=== PATIENT | male | born 1985 | race Two or more races ===

== ENCOUNTER 2021-08-20 13:08 | Inpatient (IN) | payer MEDICAID, OTHER ==
[~2021-08-20] VITALS: Ht 175.3 cm; Wt 114.7 kg
[2021-08-20 13:43] LABS: Eosinophils # (auto) 0 10 ^3/uL (0-0.8); Mean Corpuscular Volume 86.7 fL (80.0-100.0); Monocytes # (auto) 0.4 10 ^3/uL (0-1.3); Neutrophils # (auto) 7.6 10 ^3/uL (1.6-8.6); Nucleated Red Blood Cells % 0.1 %
[2021-08-20 13:44] LABS: Basophils # (auto) 0.2 10 ^3/uL (0-0.2); Basophils % (auto) 1.8 % (0.0-2.0); Eosinophils % (auto) 0.1 % (0.0-7.0); Hemoglobin 18.4 g/dL (13.5-17.5); Lymphocytes # (auto) 1.2 10 ^3/uL (0.4-5.4); Lymphocytes % (auto) 12.6 % (10.0-50.0); Mean Corpuscular Hgb Conc. 33.4 g/dL (32.0-36.0); Monocytes % (auto) 4.7 % (0.0-12.0); Neutrophils % (auto) 80.8 % (37.0-80.0); Red Blood Cells 6.35 10^6/uL (4.5-5.90); White Blood Cell 9.4 10^3/uL (4.4-10.8)
[2021-08-20] MEDS ORDERED: INSULIN LANTUS (GLARGINE) 1 /0.01ml (100units/ml) SC ONE (14:15)
[2021-08-20] MEDS ORDERED: InsuLIN REG 1unit/0.01ml Soln (100units/ml) IV ONE (14:15)
[2021-08-20] MEDS ORDERED: DEXTROSE (50%) 50ML SYRG IV PRN (14:15)
[2021-08-20] MEDS ORDERED: SODIUM CHLORIDE 0.9% 1,000 ML IV ONE (14:15)
[2021-08-20] MEDS ORDERED: ONDANSETRON HCL 4 MG/2 ML VIAL IV ONE (14:15)
[2021-08-20 15:42] LABS: Basophils # (auto) 0.1 10 ^3/uL (0-0.2); Eosinophils # (auto) 0 10 ^3/uL (0-0.8); Hemoglobin 18.2 g/dL (13.5-17.5); Monocytes # (auto) 0.4 10 ^3/uL (0-1.3); Nucleated Red Blood Cells % 0.1 %
[2021-08-20 15:44] LABS: Basophils % (auto) 1.2 % (0.0-2.0); Hematocrit 54.2 % (41.0-53.0); Lymphocytes % (auto) 10.4 % (10.0-50.0); Mean Corpuscular Hemoglobin 29.5 pg (28.0-32.0); Mean Corpuscular Hgb Conc. 33.5 g/dL (32.0-36.0); Mean Corpuscular Volume 88.1 fL (80.0-100.0); Monocytes % (auto) 4.4 % (0.0-12.0); Neutrophils # (auto) 8.2 10 ^3/uL (1.6-8.6); Red Blood Cells 6.15 10^6/uL (4.5-5.90); White Blood Cell 9.7 10^3/uL (4.4-10.8)
[2021-08-20] MEDS: ACCU-CHEK COMFORT CURVE STRIP VI SCH ×6 (16:30→23:05)
[2021-08-20] MEDS: InsuLIN R (HUMAN) 100 UNITS in SODIUM CHL 0.9% 99 ML IV SCH ×2 (17:08→18:57)
[2021-08-20 18:55] LABS: Potassium 4.8 mmol/L (3.5-5.1)
[2021-08-20 18:56] LABS: Albumin 4.9 g/dL (3.4-5.0); Bilirubin, Total 0.8 mg/dL (0.2-1.0); Calcium 9.4 mg/dL (8.5-10.1); Total Protein 9.3 g/dL (6.4-8.2)
[2021-08-20] MEDS ORDERED: HYDROcodone-ACET 5/325MG TAB PO PRN (21:30)
[2021-08-20] MEDS ORDERED: METOPROLOL TARTRATE 25 MG TAB PO ONE (21:30)
[2021-08-20] MEDS ORDERED: ONDANSETRON HCL 4 MG/2 ML VIAL IV PRN (21:30)
[2021-08-20] MEDS ORDERED: ACETAMINOPHEN 325 MG TAB PO PRN (21:30)
[2021-08-20] MEDS ORDERED: DOCUSATE SOD 100 MG CAP PO PRN (21:30)
[2021-08-20] MEDS: METOPROLOL TARTRATE 25 MG TAB PO SCH (23:14)
[2021-08-20] MEDS: SODIUM CHLORIDE 0.9% 1,000 ML IV SCH (23:14)
[2021-08-20] MEDS ORDERED: NITROGLYCERIN 0.4 MG SL TAB SL PRN (23:15)
[2021-08-20] MEDS ORDERED: MORPHINE SULFATE INJ 2 MG/ml SYRG IV PRN (23:15)
[2021-08-21] MEDS: ACCU-CHEK COMFORT CURVE STRIP VI SCH ×13 (00:33→23:15)
[2021-08-21 02:42] LABS: Urine Bacteria NONE SEEN /hpf (None Seen); Urine Blood 1+ /uL (Negative); Urine Specific Gravity 1.029 (1.001-1.035); Urine WBC 1 /hpf (0 - 3)
[2021-08-21] MEDS ORDERED: InsuLIN R (HUMAN) 100 UNITS in SODIUM CHL 0.9% 99 ML IV SCH ×3 (04:15→18:15)
[2021-08-21 05:37] LABS: Albumin 4.3 g/dL (3.4-5.0); BUN/Creatinine Ratio 13.6; Calcium 8.7 mg/dL (8.5-10.1); Potassium 4.4 mmol/L (3.5-5.1)
[2021-08-21 05:40] LABS: Bilirubin, Total 0.8 mg/dL (0.2-1.0); Total Protein 7.7 g/dL (6.4-8.2)
[2021-08-21 07:40] LABS: Albumin 4.3 g/dL (3.4-5.0); Basophils # (auto) 0.2 10 ^3/uL (0-0.2); Basophils % (auto) 2.3 % (0.0-2.0); Calcium 8.7 mg/dL (8.5-10.1); Eosinophils # (auto) 0 10 ^3/uL (0-0.8); Eosinophils % (auto) 0.1 % (0.0-7.0); Hematocrit 47.7 % (41.0-53.0); Hemoglobin 16.4 g/dL (13.5-17.5); Lymphocytes # (auto) 1.6 10 ^3/uL (0.4-5.4); Lymphocytes % (auto) 17.3 % (10.0-50.0); Mean Corpuscular Hemoglobin 29.3 pg (28.0-32.0); Mean Corpuscular Hgb Conc. 34.4 g/dL (32.0-36.0); Monocytes # (auto) 0.8 10 ^3/uL (0-1.3); Monocytes % (auto) 8.5 % (0.0-12.0); Neutrophils # (auto) 6.8 10 ^3/uL (1.6-8.6); Neutrophils % (auto) 71.8 % (37.0-80.0); Nucleated Red Blood Cells % 0.2 %; Potassium 4.1 mmol/L (3.5-5.1); Red Blood Cells 5.62 10^6/uL (4.5-5.90); Red Cell Distribution Width 12.9 % (11.8-14.3); White Blood Cell 9.4 10^3/uL (4.4-10.8)
[2021-08-21 07:44] LABS: BUN/Creatinine Ratio 12.4; Bilirubin, Total 0.7 mg/dL (0.2-1.0)
[2021-08-21] MEDS ORDERED: INSULIN LANTUS (GLARGINE) 1 /0.01ml (100units/ml) SC SCH (10:00)
[2021-08-21] MEDS: METOPROLOL TARTRATE 25 MG TAB PO SCH ×2 (11:17→22:00)
[2021-08-21] MEDS: FAMOTIDINE (10MG/ML) 2ML VL IV SCH (11:17)
[2021-08-21] MEDS ORDERED: DEXTROSE (50%) 50ML SYRG IV PRN ×2 (13:30→18:15)
[2021-08-21] MEDS: SODIUM CHLORIDE 0.9% 1,000 ML IV SCH (14:10)
[2021-08-21] MEDS ORDERED: ACCU-CHEK COMFORT CURVE STRIP VI SCH (16:00)
[2021-08-21] MEDS ORDERED: InsuLIN REG 1unit/0.01ml Soln (100units/ml) SC SCH (16:00)
[2021-08-21] MEDS ORDERED: INSULIN LANTUS (GLARGINE) 1 /0.01ml (100units/ml) SC ONE (18:15)
[2021-08-21] MEDS ORDERED: SODIUM CHLORIDE 0.9% 2,000 ML IV ONE (18:15)
[2021-08-21] MEDS ORDERED: POTASSIUM CHL 20MEQ/100ML 200 ML IV PRN (18:15)
[2021-08-21] MEDS ORDERED: POTASSIUM CHL 20MEQ/100ML 100 ML IV PRN (18:15)
[2021-08-21 20:39] LABS: BUN/Creatinine Ratio 13.4; Calcium 8.7 mg/dL (8.5-10.1); Magnesium 2.6 mg/dL (1.6-2.6); Phosphorus 1.6 mg/dL (2.5-4.90); Potassium 4.3 mmol/L (3.5-5.1)
[2021-08-21 20:45] LABS: Urine Bacteria NONE SEEN /hpf (None Seen); Urine Blood Negative /uL (Negative); Urine Specific Gravity 1.035 (1.001-1.035); Urine WBC <1 /hpf (0 - 3)
[2021-08-21 22:24] LABS: Calcium 8.7 mg/dL (8.5-10.1); Potassium 4.1 mmol/L (3.5-5.1)
[2021-08-21 22:39] VITALS: BP 137/79
[2021-08-21 23:20] VITALS: BP 156/75
[2021-08-22] VITALS (12 sets, daily range): BP systolic 109–142; BP diastolic 55–83
[2021-08-22] MEDS: ACCU-CHEK COMFORT CURVE STRIP VI SCH ×11 (00:37→20:15)
[2021-08-22 00:50] LABS: BUN/Creatinine Ratio 13.1; Calcium 8.3 mg/dL (8.5-10.1); Potassium 3.9 mmol/L (3.5-5.1)
[2021-08-22] MEDS ORDERED: SODIUM BICARBONATE 8.4 % INJ 50ML VIAL IV ONE (02:15)
[2021-08-22 05:14] LABS: Basophils # (auto) 0.1 10 ^3/uL (0-0.2); Basophils % (auto) 1.7 % (0.0-2.0); Eosinophils # (auto) 0.2 10 ^3/uL (0-0.8); Hematocrit 41.4 % (41.0-53.0); Hemoglobin 14.5 g/dL (13.5-17.5); Lymphocytes # (auto) 1.4 10 ^3/uL (0.4-5.4); Lymphocytes % (auto) 26.9 % (10.0-50.0); Mean Corpuscular Hemoglobin 29.1 pg (28.0-32.0); Mean Corpuscular Hgb Conc. 34.9 g/dL (32.0-36.0); Mean Corpuscular Volume 83.4 fL (80.0-100.0); Monocytes # (auto) 0.5 10 ^3/uL (0-1.3); Monocytes % (auto) 8.7 % (0.0-12.0); Neutrophils # (auto) 3.1 10 ^3/uL (1.6-8.6); Neutrophils % (auto) 59.7 % (37.0-80.0); Nucleated Red Blood Cells % 0.2 %; Red Blood Cells 4.97 10^6/uL (4.5-5.90); Red Cell Distribution Width 12.9 % (11.8-14.3); White Blood Cell 5.3 10^3/uL (4.4-10.8)
[2021-08-22 05:36] LABS: Albumin 3.5 g/dL (3.4-5.0); Calcium 8.2 mg/dL (8.5-10.1); Potassium 3.3 mmol/L (3.5-5.1)
[2021-08-22 05:41] LABS: BUN/Creatinine Ratio 13.3; Bilirubin, Total 1.1 mg/dL (0.2-1.0); Total Protein 6.3 g/dL (6.4-8.2)
[2021-08-22] MEDS ORDERED: INSULIN LANTUS (GLARGINE) 1 /0.01ml (100units/ml) SC SCH (10:00)
[2021-08-22] MEDS: FAMOTIDINE (10MG/ML) 2ML VL IV SCH (10:13)
[2021-08-22] MEDS: POTASSIUM CHL 20 Meq TABLET PO SCH ×2 (10:14→20:13)
[2021-08-22] MEDS: SODIUM CHLORIDE 0.9% 1,000 ML IV SCH (10:23)
[2021-08-22 10:38] LABS: BUN/Creatinine Ratio 12.8; Calcium 8.5 mg/dL (8.5-10.1); Potassium 3.3 mmol/L (3.5-5.1)
[2021-08-22] MEDS ORDERED: SODIUM CHLORIDE 0.9% 1,000 ML IV ONE ×2 (11:45)
[2021-08-22] MEDS: D5W/SOD CHL 0.45% 1,000 ML IV SCH ×2 (13:39→22:15)
[2021-08-22 17:15] LABS: Calcium 8.1 mg/dL (8.5-10.1)
[2021-08-22] MEDS ORDERED: DEXTROSE (50%) 50ML SYRG IV PRN (18:00)
[2021-08-22 18:13] LABS: Potassium 3.7 mmol/L (3.5-5.1)
[2021-08-22] MEDS ORDERED: InsuLIN REG 1unit/0.01ml Soln (100units/ml) SC ONE (18:30)
[2021-08-22] MEDS: InsuLIN REG 1unit/0.01ml Soln (100units/ml) SC SCH (20:15)
[2021-08-22 23:10] LABS: BUN/Creatinine Ratio 11.2; Calcium 8.4 mg/dL (8.5-10.1); Potassium 3.5 mmol/L (3.5-5.1)
[2021-08-23] MEDS: InsuLIN REG 1unit/0.01ml Soln (100units/ml) SC SCH ×6 (00:38→21:54)
[2021-08-23] MEDS: ACCU-CHEK COMFORT CURVE STRIP VI SCH ×6 (00:39→21:53)
[2021-08-23] MEDS: D5W/SOD CHL 0.45% 1,000 ML IV SCH (08:15)
[2021-08-23 09:00] VITALS: BP 94/67
[2021-08-23] MEDS: FAMOTIDINE 20 MG TAB PO SCH (09:25)
[2021-08-23 10:12] LABS: Basophils # (auto) 0.1 10 ^3/uL (0-0.2); Basophils % (auto) 1.4 % (0.0-2.0); Eosinophils # (auto) 0.1 10 ^3/uL (0-0.8); Eosinophils % (auto) 2.5 % (0.0-7.0); Hematocrit 38.9 % (41.0-53.0); Hemoglobin 13.5 g/dL (13.5-17.5); Lymphocytes # (auto) 1.1 10 ^3/uL (0.4-5.4); Lymphocytes % (auto) 26.2 % (10.0-50.0); Mean Corpuscular Hemoglobin 29.2 pg (28.0-32.0); Mean Corpuscular Hgb Conc. 34.7 g/dL (32.0-36.0); Mean Corpuscular Volume 84.2 fL (80.0-100.0); Monocytes # (auto) 0.5 10 ^3/uL (0-1.3); Neutrophils # (auto) 2.4 10 ^3/uL (1.6-8.6); Neutrophils % (auto) 57.9 % (37.0-80.0); Nucleated Red Blood Cells % 0.3 %; Red Blood Cells 4.62 10^6/uL (4.5-5.90); Red Cell Distribution Width 12.6 % (11.8-14.3); White Blood Cell 4.1 10^3/uL (4.4-10.8)
[2021-08-23 10:39] LABS: Potassium 3.3 mmol/L (3.5-5.1)
[2021-08-23 10:46] LABS: Albumin 3.2 g/dL (3.4-5.0); BUN/Creatinine Ratio 9.7; Bilirubin, Total 0.7 mg/dL (0.2-1.0); Calcium 8.4 mg/dL (8.5-10.1); Total Protein 5.8 g/dL (6.4-8.2)
[2021-08-23] MEDS ORDERED: INSULIN LANTUS (GLARGINE) 1 /0.01ml (100units/ml) SC ONE (11:45)
[2021-08-23 13:00] VITALS: BP 123/75
[2021-08-23] MEDS ORDERED: DEXTROSE (50%) 50ML SYRG IV PRN (13:00)
[2021-08-23 17:00] VITALS: BP 113/55
[2021-08-23] MEDS: metFORMIN HYDROCHLORIDE 850 MG TAB PO SCH (17:37)
[2021-08-23 21:44] VITALS: BP 122/75
[2021-08-23] MEDS ORDERED: INSULIN LANTUS (GLARGINE) 1 /0.01ml (100units/ml) SC SCH (22:00)
[2021-08-24 04:57] VITALS: BP 123/71
[2021-08-24 05:57] LABS: Calcium 8.7 mg/dL (8.5-10.1); Magnesium 2.2 mg/dL (1.6-2.6)
[2021-08-24 06:01] LABS: BUN/Creatinine Ratio 9.4
[2021-08-24] MEDS: ACCU-CHEK COMFORT CURVE STRIP VI SCH ×2 (07:02→11:08)
[2021-08-24] MEDS: InsuLIN REG 1unit/0.01ml Soln (100units/ml) SC SCH ×2 (07:03→11:09)
[2021-08-24 08:00] VITALS: BP 112/71
[2021-08-24] MEDS: metFORMIN HYDROCHLORIDE 850 MG TAB PO SCH (08:38)
[2021-08-24] MEDS: FAMOTIDINE 20 MG TAB PO SCH (08:38)
[2021-08-24] MEDS ORDERED: POTASSIUM CHL 20 Meq TABLET PO ONE (09:45)
[2021-08-24 12:00] VITALS: BP 121/72
[2021-08-24] MEDS ORDERED: INSLANTI SC (12:08)
[2021-08-24] MEDS ORDERED: METF-371 PO (12:08)
[2021-08-24 12:11] VITALS: BP 112/71
== END 2021-08-24 14:00 | disposition home or self-care (01) | DRG 420 ==
LOC: ER 13:08 → OVERFLOW 23:02 → TELE-WESTW 08-21 17:16 → DOU IN ICU 08-21 23:22 → ICU CENTRL 08-21 23:54 → DOU IN ICU 08-21 23:56 → ICU CENTRL 08-22 01:30 → TELE-EAST 08-23 01:52
PROVIDERS: ADMIT Nurse Practitioner Family; ATTEND Internal Medicine
DX: E11.10 Type 2 diabetes mellitus with ketoacidosis without coma (principal); N17.0 Acute kidney failure with tubular necrosis; E87.1 Hypo-osmolality and hyponatremia; E66.01 Morbid (severe) obesity due to excess calories; E86.0 Dehydration; E87.6 Hypokalemia; Z20.822 Contact with and (suspected) exposure to COVID-19; E11.65 Type 2 diabetes mellitus with hyperglycemia; Z83.3 Family history of diabetes mellitus; Z68.37 Body mass index [BMI] 37.0-37.9, adult; Z79.84 Long term (current) use of oral hypoglycemic drugs
CPT/HCPCS: 36415; 36600; 71045; 80048; 80053; 80061; 81001; 82010; 82805; 82962; 83036; 83735; 83930; 84100; 84443; 85025; 87081; 93005; 96361; 96365; 99291; G0378; J1815; J2405; J3490